=== PATIENT | female | born 1985 | race African-American/Black ===

== ENCOUNTER 2016-06-02 07:11 | Emergency (ER) | payer MEDICAID ==
[~2016-06-02] VITALS: Ht 165.1 cm; Wt 99.8 kg
[~2016-06-02 07:11] MED LIST: TOPI25TA32; TRIA25CA
[2016-06-02] MEDS ORDERED: TETRACAINE HCL 0.5% OPTH(EYE) SOLN 2ML EACHEYE ONE (08:15)
[2016-06-02] MEDS ORDERED: KETOROLAC TROMETH 60MG/2ML VIAL IM ONE (08:15)
[2016-06-02 10:50] VITALS: BP 122/68
== END 2016-06-02 10:57 | disposition short-term general hospital (02) ==
LOC: ER 07:14
DX: T15.92XA Foreign body on external eye, part unspecified, left eye, initial encounter (principal); Z88.1 Allergy status to other antibiotic agents; Z88.6 Allergy status to analgesic agent; W22.8XXA Striking against or struck by other objects, initial encounter; Y93.89 Activity, other specified; Y92.89 Other specified places as the place of occurrence of the external cause; Y99.2 Volunteer activity
CPT/HCPCS: 96372; 99285; J1885